=== PATIENT | female | born 1985 | race Caucasian/White ===

== ENCOUNTER 2023-08-11 08:14 | Outpatient (AMB) | payer OTHER, SELFPAY ==
[2023-08-11 08:38] VITALS: BP 120/68; PULSE 60; BMI 27.0
--- NOTE | 2023-08-11 08:38 | A.OFFVIS_ITS ---
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 Patient is an avid athlete and hikes, mountain bikes extra. During recent mountain biking ride that she has done before, she did not feel right. She was getting discomfort in the chest, feeling lightheaded, nauseous extra. Since around that time, she has been having these symptoms even without any activity. No previous cardiac history. In the past, she never really had any major issues but she has had some chest pains since COVID episode last year. She is concerned if there is any cardiac issue. Hence referred for evaluation. Of note, she is actually having some discomfort even when she is in the room resting. [facility] Surgical History (Updated 08/11/23 @ 08:42 by Khushboo Denton) History of ankle surgery Family History (Updated 08/11/23 @ 08:43 by Khushboo Denton) Father A-fib Social History (Updated 08/11/23 @ 08:43 by Khushboo Denton) Alcohol intake: current Alcohol intake frequency: holidays/special occasions only Patient Tobacco Use Status: Never used Tobacco Review of Systems Const Denies weakness ENT Denies dizziness Card Reports chest pain, Reports chest pain with activity, Denies syncope, Denies rapid heart rate, Denies pedal edema, Denies edema, Denies leg edema, Reports lightheadedness, Denies palpitations, Denies dyspnea, Denies dyspnea on exertion and Denies orthopnea Resp Denies cough, Denies dyspnea and Denies dyspnea on exertion GI Denies hematochezia and Denies change in stool character Musc Denies abnormal gait, Denies muscle cramps, Denies muscle weakness, Denies numbness, Denies radiating pain into limb and Denies tingling Neuro Denies abnormal gait, Denies dizziness, Denies syncope, Denies numbness, Denies tingling and Denies weakness Endo Denies palpitations Physical Exam Vital Signs: Last Vital Signs Pulse 60 08/11/23 08:38 BP 120/68 08/11/23 08:38 BMI result Body Mass Index 27.0 Const General: comfortable and no acute distress Orientation/consciousness: patient oriented x3 HEENT Other: Unremarkable Head: Yes normal to inspection Neck Neck: Yes normal visual inspection Chest Chest palpation & inspection: normal inspection of the chest Resp Auscultation: clear to auscultation bilaterally Cardio Palpation: normal PMI Heart sounds: S1 normal heart sound present, S2 normal heart sound present, no gallops, no murmurs and no rubs GI Palpation (GI): Soft to palpation Back/Spine/Pelvis Other: unremarkable Skin General skin exam: no rashes or lesions noted Neuro General: patient oriented x3 Extrem General: Yes normal to inspection Psych Mental Status: mental status grossly normal Office Procedures EKG Details: EKG with sinus rhythm at 60/Min; rightward axis; no significant ST-T changes and otherwise unremarkable. [place]. [id number], Complete Assessment & Plan Assessment & Plan (1) Precordial chest pain: Code(s): R07.2 - Precordial pain Category: Medical Plan Various symptoms including chest pain, lightheadedness, nausea, with and without activity. High level of physical activity at baseline. Resting EKG without any clear-cut abnormalities. Overall, doubt any cardiac basis for this. She is young, highly active and without any major risk factors. Hence low likelihood for obstructive CAD. We will get an echocardiogram to look for anything structural. Exercise stress test to evaluate symptoms that she is describing and any associated findings. We will follow-up after the above. Patient is agreeable to the current plan. Orders: Orders CA echo stress exercise Today R07.2 - Precordial pain CA echo transthoracic complete Today R07.2 - Precordial pain Coding Level of Care Code New Pt Level 4 (71887) Diagnoses Precordial chest pain R07.2 CPT Codes EKG - CPT: 92472-[id number], Complete ([id number])
== END 2023-08-11 09:26 | disposition home or self-care (01) ==
PROVIDERS: PCP Family Medicine; Visit Provider Internal Medicine
DX: R07.2 Precordial pain (principal)
CPT/HCPCS: 93010; 99204

== ENCOUNTER → 2023-08-11 08:14 | Outpatient (BNVA) | payer OTHER, SELFPAY | PROVIDERS: PCP Family Medicine; Visit Provider Internal Medicine | DX: R07.2 Precordial pain (principal) | CPT/HCPCS: 93005 ==

== ENCOUNTER → 2023-08-13 09:46 | Outpatient (REF) | payer OTHER, SELFPAY ==
--- NOTE | 2023-08-13 09:51 | CA_ITS ---
Transthoracic Echocardiogram Patient (Last, First, Middle): Colleen Turner, Gender: Female Date of : 1985 Age: 37 Procedure Date: 08/13/2023 Procedure Type: Transthoracic Echocardiogram Location: OP Height: 167.64 cm Weight: 74.84 kg BSA: 1.84 m2 Heart Rate: 53 bpm BP: 128 / 70 mmHg Conference Planner: ALESHA Referring MD: Rudolph Norton MD Symptoms: R07.2 - Precordial pain Study Quality: Fair ECG Rhythm: Bradycardia Conclusions: - Normal left ventricular size, thickness, systolic function, and wall motion. - Diastolic function is normal for age. - Normal right ventricular cavity size and systolic function. - Normal global longitudinal strain -20%. Findings Left Ventricle Normal left ventricular size, thickness, systolic function, and wall motion. The visually estimated ejection fraction is between 60-65%. Diastolic function is normal for age. Right Ventricle Normal right ventricular cavity size and systolic function. Atria Both atria are normal in size. Aortic Valve Normal aortic valve structure and function. There is no aortic valve stenosis. There is no aortic valve regurgitation. Mitral Valve The mitral valve appears normal. There is no mitral valve regurgitation. There is no mitral valve stenosis. Pulmonic Valve The pulmonic valve is normal. There is trace pulmonic valve regurgitation. Tricuspid Valve Normal tricuspid valve structure. Normal right atrial pressure. There is no evidence of pulmonary hypertension. Great Vessels All visible segments of the aorta are normal in size. The visualized portions of the pulmonary artery and branches are normal. Venous The inferior vena cava is normal in size and collapses greater than 50% with inspiration. Pericardium/Pleural There is no evidence of pericardial effusion. Prior Study Comparison No prior study available for comparison. Measurements 2D Linear Measurements IVSd: 0.83 0.6-0.9/0.6-1.0 cm LVIDd: 4.91 3.9-5.3/4.2-5.9 cm LVIDd Index: 2.67 2.4-3.2/2.2-3.1 cm/m2 LVIDs: 2.82 2.0-3.6 cm LVPWd: 0.86 0.7-1.1 cm LA Diam: 3.20 2.7-3.8/3.0-4.0 cm LAIDs Index: 1.74 1.5-2.3 cm/m2 LV Mass: 175.62 67-162/88-224 g LV Mass Index: 95.44 43-95/49-115 g/m2 LVOT Diam: 1.90 3.0+(-)1.3 cm 2D Systolic Function EF 4C: 64.10 >55% EF 2C: 75.40 >55% EF BiP: 71.10 >55% Mitral Valve MV Pk E: 0.79 MV PK A: 0.66 MV Decel Time: 345.00 E/A: 1.20 E'Lateral: 14.60 E'Medial: 8.70 E/E' Med: 9.10 E/E' Lat: 5.40 PHT: 101.00 MVA PHT: 2.18 Decel Wright: 2.30 Aortic Valve AoV Pk Oliver: 1.56 AoV Mn Oliver: 1.06 AoV VTI: 0.34 AoV Pk Grad: 10.00 Aov Mn Grad: 5.00 NALLELY Cont.VTI: 2.62 LVOT LVOT Pk Oliver: 1.38 LVOT Mn Oliver: 1.00 LVOT VTI: 0.32 LVOT Pk Grad: 8.00 LVOT Mn Grad: 5.00 LVOT Diam: 1.90 LVOT Area: 2.84 Diastolic Function MV Pk E: 0.79 MV Pk A: 0.66 E/A: 1.20 E'Medial: 8.70 E/E' Med: 9.10 E' Laterial: 14.60 E/E' Lat: 5.40 Right Ventricle TAPSE (mm): 24.40 TVS' Oliver: 9.36 Tricuspid Valve TR Pk Oliver: 1.94 TR Pk Grad: 15.00 RA Press: 8.00 RVSP: 23.00 Great Vessels Aorta Sinus of Valsalva: 3.10 2.0-3.5 cm Ao Asc: 3.00 2.1-3.4 cm Pulmonary Valve PV Pk Oliver: 1.03 Peak PV Grad: 4.00 Updated in Other Vendor System with Status of Final Laci Cruz MD electronically signed on 08/16/2023 5:13:54 PM with status of Final
== END ==
LOC: HO.CARD 09:46
PROVIDERS: PCP Family Medicine; Visit Provider Internal Medicine
DX: R07.2 Precordial pain (principal)
CPT/HCPCS: 93306; 93356

== ENCOUNTER → 2023-08-13 09:51 | Outpatient (BNV) | payer OTHER, SELFPAY | PROVIDERS: PCP Family Medicine; Visit Provider Internal Medicine Cardiovascular Disease | DX: R07.2 Precordial pain (principal) | CPT/HCPCS: 93306 ==

== ENCOUNTER → 2023-08-17 10:36 | Outpatient (REF) | payer OTHER, SELFPAY ==
--- NOTE | 2023-08-17 10:40 | CA_ITS ---
Acquisition Time: 2023-08-17 11:36:38 Total Exercise Time: 00:13:42 Test Indications: CP Medications: SEE H Protocol: NAN Max HR: 173 BPM 94% of Pred: 184 BPM Max BP: 168/056 mmHG Max Work Load: 16.6 METS Exercise stress test exercise 13 min 42 sec of Nan protocol achieving 94% MPHR, without anginal symptoms, without arrhythmais, with normotensive resposne to exercise, without EKG changes. Echo images obtained by tech at rest and immediately post peak exercise. Definity contrast used. Chest pressure resolved by 4 minutes recovery. Test reviewed with Dr Norton. Referred By: Rudolph Norton Overread By: Maura Degroot
== END ==
LOC: HO.CARD 10:36
PROVIDERS: PCP Family Medicine; Visit Provider Internal Medicine
DX: R07.2 Precordial pain (principal)
CPT/HCPCS: 93350; Q9957

== ENCOUNTER → 2023-08-17 10:40 | Outpatient (BNV) | payer OTHER, SELFPAY | PROVIDERS: PCP Family Medicine; Visit Provider Nurse Practitioner | DX: R07.9 Chest pain, unspecified (principal) | CPT/HCPCS: 93016; 93018; 93350; 93352 ==